=== PATIENT | female | born 1985 | race Caucasian/White ===

== ENCOUNTER 2016-06-14 23:08 | Emergency (ER) | payer OTHER | END 2016-06-15 00:47 | disposition home or self-care (01) | LOC: ER 23:08 | DX: B34.9 Viral infection, unspecified (principal); R50.9 Fever, unspecified; R51 Headache; R05 Cough; F32.9 Major depressive disorder, single episode, unspecified; F17.210 Nicotine dependence, cigarettes, uncomplicated; Z79.3 Long term (current) use of hormonal contraceptives; Z79.899 Other long term (current) drug therapy | CPT/HCPCS: 87400; 99283 ==